=== PATIENT | female | born 1950 | race Caucasian/White ===

== ENCOUNTER 2018-02-14 11:23 | Emergency (ER) | payer OTHER ==
[~2018-02-14] VITALS: Ht 162.6 cm; Wt 67.1 kg
[2018-02-14] MEDS ORDERED: DICLOFENAC SODI50 MG (11:46)
[2018-02-14] MEDS ORDERED: ZANAFLEX2 M1 (11:47)
[2018-02-14] MEDS ORDERED: MEDROLPACK PO (12:39)
[2018-02-14] MEDS ORDERED: DIAZEPAM10 MG PO (12:45)
== END 2018-02-14 14:20 | disposition home or self-care (01) ==
LOC: ER 11:23
DX: M53.3 Sacrococcygeal disorders, not elsewhere classified (principal)

== ENCOUNTER → 2019-01-16 | Outpatient (CLI) | payer OTHER ==
[~2019-01-16] MED LIST: DIAZEPAM10 MG PO; DICLOFENAC SODI50 MG; MEDROLPACK PO; ZANAFLEX2 M1
== END | disposition home or self-care (01) ==
LOC: MAMO-SONO 11:56
DX: Z12.31 Encounter for screening mammogram for malignant neoplasm of breast (principal); Z87.898 Personal history of other specified conditions; N60.01 Solitary cyst of right breast; N60.02 Solitary cyst of left breast; R10.2 Pelvic and perineal pain